=== PATIENT | female | born 1950 | race Caucasian/White ===

== ENCOUNTER → 2020-11-14 | Day surgery (SDC) | payer MEDICARE, OTHER ==
[~2020-11-14] VITALS: Ht 162.6 cm; Wt 63.0 kg
[~2020-11-14] MED LIST: CALCIUM CITRAT250 MG PO; CERTAGEN1 EACH PO; FEOSOL325 MG PO; METAMUCIL1 DOSE PO; NORCO 5-325 TA1 EACH PO; OMEPRAZOLE 20MG20 MG PO; PROLIA60 MG/1 ML IJ; TRIPLE MAGNESI400 MG PO; ULTRAM50 MG PO; VITAMIN B125000 MCG PO; VITAMIN D1000 UNI1 PO; XARELTO10 MG PO
[2020-11-14 10:01] LABS: HCT 38.6 % (37.0-47.0); HGB 12.5 g/dl (12.5-16.0); MCH 29.8 pg (25.0-31.0); MCHC 32.4 g/dL (32.0-36.0); MCV 91.9 fL (78.0-100.0); MPV 11.1 fL (6.0-9.5); RBC 4.2 M/uL (4.20-5.40); RDW 13.7 % (11.5-14.0)
[2020-11-14 10:34] LABS: ALBUMIN 4.1 g/dL (3.4-5.0); BILIRUBIN - TOTAL 0.4 mg/dL (0.2-1.0); BUN/CREAT RATIO (CALC) 15.5 RATIO; CREATININE 0.84 mg/dL (0.51-0.95); GLOBULIN (CALCULATION) 3.4 g/dL; POTASSIUM 4.4 mmol/L (3.5-5.1); TOTAL PROTEIN 7.5 g/dL (6.4-8.2)
== END | disposition home or self-care (01) ==
LOC: FAS 09:15
PROVIDERS: Surgery
DX: C91.10 Chronic lymphocytic leukemia of B-cell type not having achieved remission (principal); D75.89 Other specified diseases of blood and blood-forming organs; D47.1 Chronic myeloproliferative disease; Z79.899 Other long term (current) drug therapy; Z88.8 Allergy status to other drugs, medicaments and biological substances; Z96.659 Presence of unspecified artificial knee joint
CPT/HCPCS: 36415; 80053; J1642; J2250; J2704; J3010; J7120